=== PATIENT | female | born 1980 | race Caucasian/White ===

== ENCOUNTER 2017-09-30 11:43 | Emergency (ER) | payer BC ==
--- NOTE | 2017-09-30 12:30 | CT ---
CT HEAD NONCONTRAST: INDICATIONS: Headache. FINDINGS: No ventriculomegaly, mass effect, midline shift, or acute intracranial hemorrhage. The paranasal sin uses are clear. IMPRESSION: No acute intracranial abnormalities. POS: [facility]
== END 2017-09-30 12:56 | disposition home or self-care (01) ==
LOC: ERS 11:43
DX: R51 Headache (principal); H53.9 Unspecified visual disturbance; E03.9 Hypothyroidism, unspecified
CPT/HCPCS: 70450

== ENCOUNTER 2017-10-31 19:34 | Emergency (ER) | payer BC ==
[2017-10-31] MEDS ORDERED: Ketorolac Tromethamine 30 MG/ML VIAL ONE (19:56)
[2017-10-31 20:24] LABS: Bilirubin Negative (Negative); Blood, Urine Trace (Negative); Clarity CLEAR (Clear); Glucose, Urine (Dipstick) Negative (Negative); Leukocyte Negative (Negative); Nitrite Negative (Negative); Protein, Urine (Dipstick) Negative (Neg-Trace); Specific Gravity, Urine 1.013 (1.002-1.036); Urobilinogen 0.2 mg/dL (0.2-1.0); pH, Urine 6.5 (5.0-9.0)
[2017-10-31 20:25] LABS: #Basophils 0.1 thou/uL (0.0-0.2); #Eosinphils 0.2 thou/uL (0.0-0.7); #Lymphocytes 3.8 thou/uL (1.20-3.40); #Monocytes 0.9 thou/uL (0.11-0.59); #Neutrophils 6.7 thou/uL (1.40-6.50); %Basophils 0.5 % (0.0-1.0); %Eosinophils 1.4 % (0.0-10.0); %Monocytes 7.5 % (0.0-10.0); %Neutrophils 57.7 % (42.0-75.0); Bacteria/HPF None Seen HPF (None Seen); Hemoglobin 13.9 g/dL (12.0-16.0); Hyaline Casts/LPF 0-3 HYALINE CAST LPF (0-3 Hyaline); Mean Corpuscular HGB CONC 34.4 g/dL (32.0-36.0); Mean Corpuscular Hemoglobin 29.7 pg (27.0-31.0); Mean Corpuscular Volume 86.3 fl (81.0-99.0); Mean Platelet Volume 6.5 fL (7.4-10.4); Platelet Count 336 thou/uL (130-400); RBC Distribution Width 12.1 % (11.5-14.5); Red Blood Cell (RBC) Count 4.69 mill/uL (4.20-5.40); Squamous Epithelial 0-3 HPF (0-3); WBC/HPF 0-3 HPF (0-3); White Blood Cell (WBC) Count 11.5 thou/uL (4.8-10.8)
[2017-10-31 20:28] LABS: BHCG - Serum Negative (NEGATIVE); Pregs Control Background? CLEAR/WHITE (CLR/WHITE); Pregs Control Bar Appear? YES (CONTROL BAR)
[2017-10-31 20:42] LABS: ALT (SGPT) 20 U/L (8-55); AST (SGOT) 14 U/L (5-34); Albumin 4.6 g/dL (3.5-5.0); Alkaline Phosphatase 90 U/L (40-150); Anion Gap 15 mmol/L (10-20); BUN (Urea Nitrogen) 14 mg/dL (7.0-18.7); Bilirubin, Total 0.3 mg/dL (0.2-1.2); Calc. Creatinine Clearance 0 mL/min (70-130); Calcium 9.8 mg/dL (7.8-10.44); Carbon Dioxide 22 mmol/L (22-29); Chloride 103 mmol/L (98-107); Estimated GFR-MDRD Greater than 90; Globulin 3.5 g/dL (2.4-3.5); Glucose 110 mg/dL (70-105); Lipase 21 U/L (8-78); Potassium 3.7 mmol/L (3.5-5.1); Protein, Total 8.1 g/dL (6.0-8.3); Sodium 136 mmol/L (136-145)
--- NOTE | 2017-10-31 23:22 | CT ---
CT OF ABDOMEN AND PELVIS: Date: 10-31-17 Comparison: None. History: Flank pain. Technique: Serial axial CT imaging at 5 mm intervals from lung bases through pubic symphysis without contrast. Coronal reformatted imaging obtained. FINDINGS: The lack of contrast media limits assessment of the viscera, bowel, vascular structures and for lymph adenopathy. The imaged lung bases are unremarkable. No free intraperitoneal air is noted. The liver, spleen, pancreas, adrenal glands, gallbladder, and kidneys appear unremarkable. There is n o evidence for nephrolithiasis or obstructive uropathy on either side. Limited assessment of the diane l appears unremarkable. The appendix is within normal limits. There is midline diastasis of the anter ior abdominal wall musculature. There is mild soft tissue prominence in the region of the right adnexa which could signify underlying right ovarian enlargement or subtle hypodense lesion within the right ovary. The osseous structures demonstrate no acute findings. Scattered atherosclerotic calcification of the abdominal aorta noted. There is a small exophytic hypodense lesion emanating from the upper to mid pole of the left kidney m easuring in the 7-8 mm range, too small to characterize. IMPRESSION: No evidence for obstructive uropathy or nephrolithiasis. Incidental findings as described above. POS: [facility]
== END 2017-10-31 23:10 | disposition home or self-care (01) ==
LOC: ERS 19:34
DX: N39.0 Urinary tract infection, site not specified (principal); E03.9 Hypothyroidism, unspecified; Z79.899 Other long term (current) drug therapy
CPT/HCPCS: 74176; 80053; 81003; 81015; 83690; 84703; 85025; 96361; 96374; J1885

== ENCOUNTER 2019-04-12 18:49 | Emergency (ER) | payer BC ==
[~2019-04-12 18:49] MED LIST: ISOVUE-370 76%-LOCM 1 ML ONE
[2019-04-12 19:18] LABS: #Basophils 0.1 thou/uL (0.0-0.2); #Eosinphils 0.3 thou/uL (0.0-0.7); #Lymphocytes 3.5 thou/uL (1.20-3.40); #Monocytes 0.6 thou/uL (0.11-0.59); %Basophils 0.6 % (0.0-1.0); %Lymphocytes 33.6 % (21.0-51.0); %Monocytes 5.6 % (0.0-10.0); %Neutrophils 57.2 % (42.0-75.0); Hemoglobin 13.6 g/dL (12.0-16.0); Mean Corpuscular HGB CONC 33.8 g/dL (32.0-36.0); Mean Corpuscular Hemoglobin 29.5 pg (27.0-31.0); Mean Platelet Volume 6.7 fL (7.4-10.4); Platelet Count 274 thou/uL (130-400); RBC Distribution Width 12.1 % (11.5-14.5); Red Blood Cell (RBC) Count 4.62 mill/uL (4.20-5.40); White Blood Cell (WBC) Count 10.5 thou/uL (4.8-10.8)
[2019-04-12] MEDS ORDERED: Ondansetron PF 4 MG/2 ML Vial ONE (19:29)
[2019-04-12] MEDS ORDERED: Ketorolac Tromethamine 30 MG/ML VIAL ONE (19:29)
[2019-04-12 19:40] LABS: ALT (SGPT) 39 U/L (8-55); AST (SGOT) 28 U/L (5-34); Albumin 4.5 g/dL (3.5-5.0); Alkaline Phosphatase 87 U/L (40-150); Anion Gap 16 mmol/L (10-20); BUN (Urea Nitrogen) 8 mg/dL (7.0-18.7); Bilirubin, Total 0.4 mg/dL (0.2-1.2); CK (CPK) 58 U/L (29-168); Calc. Creatinine Clearance 0 mL/min (70-130); Calcium 9.7 mg/dL (7.8-10.44); Carbon Dioxide 24 mmol/L (22-29); Chloride 104 mmol/L (98-107); Estimated GFR-MDRD Greater than 90; Globulin 3.3 g/dL (2.4-3.5); Glucose 101 mg/dL (70-105); Lipase 23 U/L (8-78); Potassium 4.1 mmol/L (3.5-5.1); Protein, Total 7.8 g/dL (6.0-8.3); Sodium 140 mmol/L (136-145)
[2019-04-12 20:00] LABS: Bilirubin Negative (Negative); Blood, Urine 1+ (Negative); Clarity Clear (Clear); Glucose, Urine (Dipstick) Normal (Negative); Leukocyte 75 Leu/uL (Negative); Nitrite Negative (Negative); Protein, Urine (Dipstick) Negative (Neg-Trace); RBC/HPF 0-3 HPF (0-3); Squamous Epithelial 0-3 HPF (0-3); Urobilinogen Normal mg/dL (Less than 2); WBC/HPF 21-50 HPF (0-3)
[2019-04-12 20:09] LABS: Bacteria/HPF 1+ HPF (None Seen)
[2019-04-12 20:11] LABS: Pregnancy Test - Urine (BHCG) Negative (Negative); Pregu Control Background? CLEAR/WHITE (CLR/WHITE); Pregu Control Bar Appear? YES (CONTROL BAR); Specific Gravity 1.004 (1.002-1.036)
--- NOTE | 2019-04-12 20:44 | CT ---
CT angiogram thorax with contrast CT angiogram abdomen with contrast: HISTORY: 38-year-old female with mid back pain radiating into chest. TECHNIQUE: IV injection of iodinated contrast. Arterial bolus chasing technique. Scan acquisition from top of aortic arch to iliac crests. 3-D MIP reconstructions. FINDINGS: There is no aortic aneurysm, dissection, or rupture. There is mild atherosclerotic plaque infrarenal abdominal aorta and common iliac arteries. There is no retroperitoneal hematoma or free fluid within the upper abdominal cavity. No hydronephrosis. Within the limitations of an arterial phase-onl y scan, no obvious major pathology identified involving liver, pancreas, adrenals, or spleen. No pulmonary thromboembolism in the pulmonic trunk or left and right main pulmonary arteries. Not enough IV contrast to evaluate for pulmonary thromboembolism in the branches of the pulmonary arteries. Thoracic and lumbar vertebral body heights are maintained with no evidence of compression fracture. N o pleural effusion, pneumothorax, pulmonary edema, or consolidation. No acute displaced fracture of ribs or sternum. No mediastinal or hilar lymphadenopathy. Trachea and left and right mainstem bronchi are patent and clear. Incidental finding of an accessory right upper lobe bronchus and branches IMPRESSION: 1. No aortic dissection, aneurysm, or rupture. 2. Mild atherosclerosis of abdominal aorta. 3. Anatomical variant: Accessory right upper lobe bronchus.
== END 2019-04-12 22:51 | disposition home or self-care (01) ==
LOC: ERS 18:49
DX: N12 Tubulo-interstitial nephritis, not specified as acute or chronic (principal); E03.9 Hypothyroidism, unspecified; Z79.899 Other long term (current) drug therapy
CPT/HCPCS: 36415; 71275; 80053; 81003; 81015; 81025; 82550; 83690; 84484; 85025; 87077; 87086; 87186; 93005; 96361; 96374; 96375; J1885; J2405; Q9966

== ENCOUNTER 2019-10-16 11:26 | Outpatient (CLI) | payer BC ==
--- NOTE | 2019-10-16 11:55 | RAD ---
PA AND LATERAL VIEWS CHEST: HISTORY: Left-sided chest pain and scapula pain. FINDINGS: The cardiomediastinum is normal. The lungs are expanded and clear. The bony structures are unremark able. IMPRESSION: Normal exam. POS: [facility]
[2019-10-16 14:06] LABS: #Basophils 0.1 thou/uL (0.0-0.2); #Eosinphils 0.1 thou/uL (0.0-0.7); #Lymphocytes 2.9 thou/uL (1.20-3.40); #Monocytes 0.4 thou/uL (0.11-0.59); %Basophils 0.9 % (0.0-1.0); %Eosinophils 1.1 % (0.0-10.0); %Lymphocytes 38.8 % (21.0-51.0); %Monocytes 5.4 % (0.0-10.0); %Neutrophils 53.8 % (42.0-75.0); Hemoglobin 13.6 g/dL (12.0-16.0); Mean Corpuscular HGB CONC 33.6 g/dL (32.0-36.0); Mean Corpuscular Hemoglobin 29.6 pg (27.0-31.0); Mean Corpuscular Volume 88.1 fL (78.0-98.0); Mean Platelet Volume 7.4 fL (7.4-10.4); Platelet Count 273 thou/uL (130-400); RBC Distribution Width 12.2 % (11.5-14.5); Red Blood Cell (RBC) Count 4.59 mill/uL (4.20-5.40); White Blood Cell (WBC) Count 7.4 thou/uL (4.8-10.8)
[2019-10-16 14:13] LABS: ALT (SGPT) 21 U/L (8-55); AST (SGOT) 15 U/L (5-34); Albumin 4.7 g/dL (3.5-5.0); Alkaline Phosphatase 85 U/L (40-110); Anion Gap 15 mmol/L (10-20); BUN (Urea Nitrogen) 9 mg/dL (7.0-18.7); Bilirubin, Total 0.4 mg/dL (0.2-1.2); Calc. Creatinine Clearance 0 mL/min (70-130); Calcium 9.2 mg/dL (7.8-10.44); Carbon Dioxide 25 mmol/L (22-29); Chloride 103 mmol/L (98-107); Estimated GFR-MDRD Greater than 90; Globulin 3.1 g/dL (2.4-3.5); Glucose 96 mg/dL (70-105); Lipase 17 U/L (8-78); Potassium 3.5 mmol/L (3.5-5.1); Protein, Total 7.8 g/dL (6.0-8.3); Sodium 139 mmol/L (136-145)
== END 2019-10-16 11:27 | disposition home or self-care (01) ==
LOC: SCSRAD 11:26
PROVIDERS: ATTEND Internal Medicine
DX: R10.12 Left upper quadrant pain (principal); M25.512 Pain in left shoulder
CPT/HCPCS: 36415; 71046; 80053; 81001; 83690; 85025

== ENCOUNTER 2019-10-16 11:43 | Outpatient (CLI) | payer BC ==
--- NOTE | 2019-10-16 13:43 | CT ---
CT OF THE ABDOMEN AND PELVIS WITH IV CONTRAST INDICATION: Abdominal Pain COMPARISON: CTA of the abdomen and pelvis dated April 12, 2019 FINDINGS: ABDOMEN: Lung bases: Clear Liver: Fatty infiltration Gallbladder: Normal appearing. Pancreas: Normal. Adrenal glands: Normal. Spleen: Normal. Kidneys and ureters: There is a 1.5 cm cyst off the superior pole of the left kidney which is stable. Right kidney is normal-appearing. Vasculature: There are mild vascular calcifications seen involving the visualized vasculature. Lymph nodes:No lymphadenopathy. Free fluid in abdomen:No free fluid is evident. PELVIS: Small and large bowel: Normal Appendix:Normal Bladder: Normal. Rectal and perirectal soft tissues:Normal. Reproductive structures: Normal. Free fluid in pelvis: No free fluid is evident. Lymphadenopathy pelvis: No lymphadenopathy is evident. Osseous structures: No acute osseous abnormality. No destructive osteolytic or osteoblastic lesion i s identified. There is scattered degenerative and osteoarthritic changes. Soft tissues:Normal. IMPRESSION: 1. Fatty liver. 2. Stable left renal cyst.
== END 2019-10-16 11:44 | disposition home or self-care (01) ==
LOC: SCSCT 11:43
PROVIDERS: ATTEND Internal Medicine
DX: R10.9 Unspecified abdominal pain (principal); K76.0 Fatty (change of) liver, not elsewhere classified; N28.1 Cyst of kidney, acquired
CPT/HCPCS: 36415; 71046; 74177; 80053; 81001; 83690; 85025

== ENCOUNTER 2020-01-15 | Outpatient (CLI) | payer BC | END 2020-01-15 10:07 | disposition home or self-care (01) | DX: E04.1 Nontoxic single thyroid nodule (principal); E07.89 Other specified disorders of thyroid; E89.0 Postprocedural hypothyroidism ==

== ENCOUNTER 2021-02-06 13:58 | Outpatient (CLI) | payer BC | END 2021-02-06 13:59 | disposition home or self-care (01) | LOC: BICULT 13:58 | PROVIDERS: ATTEND Otolaryngology Plastic Surgery within the Head & Neck | DX: E04.0 Nontoxic diffuse goiter (principal); E04.1 Nontoxic single thyroid nodule | CPT/HCPCS: 76536 ==

== ENCOUNTER 2021-02-14 10:11 | Outpatient (CLI) | payer BC | END 2021-02-14 10:12 | disposition home or self-care (01) | LOC: BICRAD 10:11 | PROVIDERS: ATTEND Internal Medicine | DX: M54.41 Lumbago with sciatica, right side (principal); M25.532 Pain in left wrist; M51.36 Other intervertebral disc degeneration, lumbar region; M25.78 Osteophyte, vertebrae; I70.0 Atherosclerosis of aorta | CPT/HCPCS: 72100 ==

== ENCOUNTER 2021-10-07 09:37 | Outpatient (CLI) | payer BC | END 2021-10-07 09:38 | disposition home or self-care (01) | LOC: BICMAMMO 09:37 | PROVIDERS: ATTEND Internal Medicine | DX: Z12.31 Encounter for screening mammogram for malignant neoplasm of breast (principal) | CPT/HCPCS: 77063; 77067 ==

== ENCOUNTER 2021-12-28 10:15 | Emergency (ER) | payer BC ==
[2021-12-28 11:12] LABS: BHCG - Serum Negative (NEGATIVE); Pregs Control Background? CLEAR/WHITE (CLR/WHITE); Pregs Control Bar Appear? YES (CONTROL BAR)
[2021-12-28 11:13] LABS: #Basophils 0.1 thou/uL (0.0-0.2); #Eosinphils 0.3 thou/uL (0.0-0.7); #Lymphocytes 2.7 thou/uL (1.20-3.40); #Monocytes 0.5 thou/uL (0.11-0.59); #Neutrophils 3.9 thou/uL (1.40-6.50); %Basophils 0.8 % (0.0-1.0); %Eosinophils 3.5 % (0.0-10.0); %Lymphocytes 36.5 % (21.0-51.0); %Monocytes 6.2 % (0.0-10.0); %Neutrophils 52.9 % (42.0-75.0); Mean Corpuscular HGB CONC 32.6 g/dL (32.0-36.0); Mean Corpuscular Hemoglobin 28.5 pg (27.0-31.0); Mean Corpuscular Volume 87.3 fL (78.0-98.0); Mean Platelet Volume 6.9 fL (7.4-10.4); Platelet Count 313 thou/uL (130-400); RBC Distribution Width 13.5 % (11.5-14.5); Red Blood Cell (RBC) Count 4.21 mill/uL (4.20-5.40); White Blood Cell (WBC) Count 7.3 thou/uL (4.8-10.8)
[2021-12-28 11:48] LABS: ALT (SGPT) 24 U/L (8-55); AST (SGOT) 18 U/L (5-34); Albumin 4.4 g/dL (3.5-5.0); Alkaline Phosphatase 82 U/L (40-110); Anion Gap 14 mmol/L (10-20); BUN (Urea Nitrogen) 11 mg/dL (7.0-18.7); Bilirubin, Total 0.4 mg/dL (0.2-1.2); Calc. Creatinine Clearance 0 mL/min (70-130); Calcium 8.8 mg/dL (7.8-10.44); Carbon Dioxide 24 mmol/L (22-29); Chloride 105 mmol/L (98-107); Globulin 3.2 g/dL (2.4-3.5); Glucose 108 mg/dL (70-105); Potassium 4.1 mmol/L (3.5-5.1); Protein, Total 7.6 g/dL (6.0-8.3); Sodium 139 mmol/L (136-145)
[2021-12-28 12:26] LABS: Clarity Hazy (Clear)
[2021-12-28 12:27] LABS: Bilirubin Unable to Interpret (Negative); Blood, Urine Unable to Interpret (Negative); Glucose, Urine (Dipstick) Unable to Interpret mg/dL (Negative); Ketone, Urine Unable to Interpret mg/dL (Negative); Leukocyte Unable to Interpret (Negative); Nitrite Unable to Interpret (Negative); Protein, Urine (Dipstick) Unable to Interpret mg/dL (Neg-Trace); RBC/HPF Greater than 50 HPF (0-3); Urobilinogen UNABLE TO INTERPRET mg/dL (Less than 2)
[2021-12-28 12:28] LABS: Bacteria/HPF Rare-Few HPF (None Seen); WBC/HPF 0-3 HPF (0-3)
== END 2021-12-28 13:53 | disposition home or self-care (01) ==
LOC: ERS 10:15
DX: N94.6 Dysmenorrhea, unspecified (principal)
CPT/HCPCS: 36415; 80053; 81003; 81015; 84703; 85025; 86900; 86901; 99284

== ENCOUNTER 2022-02-02 14:20 | Outpatient (CLI) | payer BC | END 2022-02-02 14:21 | disposition home or self-care (01) | LOC: BICULT 14:20 | PROVIDERS: ATTEND Otolaryngology Plastic Surgery within the Head & Neck | DX: E04.9 Nontoxic goiter, unspecified (principal) | CPT/HCPCS: 76536 ==

== ENCOUNTER 2023-05-28 07:45 | Outpatient (CLI) | payer BC | END 2023-05-28 07:46 | disposition home or self-care (01) | LOC: ULT 07:45 | PROVIDERS: ATTEND Internal Medicine | DX: M79.89 Other specified soft tissue disorders (principal) | CPT/HCPCS: 76999 ==

== ENCOUNTER 2023-07-16 08:00 | Outpatient (CLI) | payer BC | END 2023-07-16 08:01 | disposition home or self-care (01) | LOC: BICMAMMO 08:00 | PROVIDERS: ATTEND Internal Medicine | DX: Z12.31 Encounter for screening mammogram for malignant neoplasm of breast (principal) | CPT/HCPCS: 77063; 77067 ==